=== PATIENT | female | born 1965 | race Caucasian/White ===

== ENCOUNTER 2020-06-11 00:26 | Emergency (ER) | payer OTHER ==
[2020-06-11 01:33] LABS: HEMOGLOBIN 15.2 gm/dl (12.3-15.3); RED BLOOD COUNT 4.9 M/UL (4.00-5.10); WHITE BLOOD COUNT 14.5 K/UL (4.5-11.0)
[2020-06-11 01:45] LABS: BUN/CREATININE RATIO 13 (0-10)
[2020-06-11] MEDS ORDERED: ZOFRAN4 MG PO (02:36)
[2020-06-11] MEDS ORDERED: PERCOCET 5/325 T1 EA PO (03:24)
== END 2020-06-11 03:47 | disposition home or self-care (01) ==
LOC: ER1 00:26
PROVIDERS: Physician Assistant
DX: N13.2 Hydronephrosis with renal and ureteral calculous obstruction (principal); Z87.442 Personal history of urinary calculi
CPT/HCPCS: 80053; 81001; 82550; 82553; 83605; 83690; 83874; 84484; 85025; 87086; 96374; 96375; 99284; J1885; J2405

== ENCOUNTER 2021-12-22 11:25 | Emergency (ER) | payer SELFPAY ==
[~2021-12-22 11:25] MED LIST: PERCOCET 5/325 T1 EA PO; ZOFRAN4 MG PO
[2021-12-22] MEDS ORDERED: IBUPROFEN600 MG PO (14:32)
== END 2021-12-22 14:40 | disposition home or self-care (01) ==
LOC: ER1 11:25
DX: S63.502A Unspecified sprain of left wrist, initial encounter (principal); E03.9 Hypothyroidism, unspecified; X58.XXXA Exposure to other specified factors, initial encounter; Y99.0 Civilian activity done for income or pay
CPT/HCPCS: 73110; 73130; 99283